=== PATIENT | female | born 1970 | race Caucasian/White ===

== ENCOUNTER 2023-03-26 23:59 | Emergency (ER) | payer OTHER ==
[~2023-03-26] VITALS: Ht 170.2 cm; Wt 102.5 kg
[2023-03-27] MEDS ORDERED: IBUPROFEN 400 MG TABLET ONE (02:29)
[2023-03-27] MEDS ORDERED: IBUPROFEN 400 MG TABLET PO ONE (02:30)
[2023-03-27 04:20] VITALS: BP 144/84; TEMP 99
== END 2023-03-27 04:21 | disposition home or self-care (01) ==
LOC: ER 03-27 00:03
DX: U07.1 COVID-19 (principal)
CPT/HCPCS: 99284; 71045; 87426; 87804 ×2; C9803